=== PATIENT | female | born 1980 | race African-American/Black ===

== ENCOUNTER 2024-04-19 23:11 | Emergency (ER) | payer SELFPAY ==
[~2024-04-19] VITALS: Ht 167.6 cm; Wt 97.0 kg
[2024-04-19 23:31] VITALS: BP 114/64; PULSE 99; TEMP 98.5; O2SAT 100
[2024-04-19 23:55] VITALS: RESP 17
== END 2024-04-20 01:10 | disposition home or self-care (01) ==
LOC: ER 23:11
DX: R30.0 Dysuria (principal); Z11.3 Encounter for screening for infections with a predominantly sexual mode of transmission
CPT/HCPCS: 99281